=== PATIENT | male | born 1945 | race Caucasian/White ===

== ENCOUNTER 2017-02-15 12:14 | Day surgery (SDC) ==
[2017-02-15] MEDS ORDERED: VERSED ONE (12:45)
[2017-02-15] MEDS ORDERED: LIDOCAINE HCL 2% LUER-JET ONE (12:45)
[2017-02-15] MEDS ORDERED: DIPRIVAN 20 ML VIAL IVP ONE (12:45)
[2017-02-15 14:17] VITALS: BP 129/79; TEMP 98
--- NOTE | 2017-02-16 11:26 | OP ---
INDICATIONS FOR PROCEDURE: 71 year old gentleman presents for endoscopy. He has intermittent dysphasia. He is responded to massive dilation in the past. He has a family history of colon cancer involving his sister and mother. His last colonoscopy was in 2011 noting a hyperplastic polyp. MEDICATIONS: SEE ANESTHESIA NOTES. PROCEDURE: 1. ENDOSCOPY SOULEYMANE BIOPSY AND MACEDONIAN DILATATION, GASTRIC BIOPSY 2. COLONOSCOPY SNARE POLYPECTOMY REPORT: The risks, benefits, alternatives and limitations were discussed in detail with the patient. Informed consent was obtained. After adequate sedation was achieved, the video endoscope was introduced in the posterior pharynx and esophagus under direct vision and easily advanced down to the second portion of the duodenum. I then slowly withdrew. The duodenal mucosa appeared unremarkable as did the duodenal bulb. The antrum was unremarkable and the body was a little bit of inflammation on the top of the gastric folds in the proximal body. There was a small erosion. A biopsied this erosion for histological review and I also obtained biopsies from the antrum body for H. Pylori testing. The scope was retroflexed to look at the cardia and fundus which was unremarkable. The scope was anteflexed and withdrawn back through the esophagus which appeared normal. The GE junction was at the top of the gastric folds. I advanced the scope back down to the gastric lumen and I placed the guidewire withdrew the scope. Over the guidewire easily passed a 54 Latvian Spanish dilator with no resistance. The patient tolerated the procedure well with stable vital signs and pulse oximetry throughout. The patient's bed was turned and a digital rectal exam revealed good tone, no masses. The colonoscope was introduced into the rectum and advanced under direct visual guidance to the cecum. The cecum was identified by the appendiceal orifice and IC valve. I then slowly withdrew the scope in a circumferential manner and examined the mucosa quite carefully. I looked on the proximal and distal sides of folds and flexures as best as possible. I was able to retroflex the scope in the right colon and the left colon to increase visualization. In the descending area there was a small 5mm slightly raise polyp that I removed by snare technique. At the very distal sigmoid there was a 4-5mm slightly raised polyp that I removed by snare technique. No other abnormalities noted other than diverticulosis. This was scattered throughout the sigmoid. The scope was retroflexed to look at the anal canal which was unremarkable. The prep was good. The withdraw time was 11 minutes and 30 seconds. The patient tolerated the procedure well with stable vital signs and pulse oximetry throughout. IMPRESSION: 1. Minimal erosive gastritis 2. Successful passive dilation of the esophagus 3. Two colonic polyps were removed 4. Sigmoid diverticulosis RECOMMENDATIONS: 1. Strict reflux precautions 2. Await H.Pylori result 3. Wait gastric biopsy results 4. Limit NSAID use 5. Await colon polyp results 6. Consider repeat colonoscopy examination for surveillance in three years or sooner if there are signs and symptoms that indicate otherwise. 7. Office visit as needed CC: Dr. Cruz OLIVAREZ
== END 2017-02-15 14:15 | disposition home or self-care (01) ==
LOC: SURG 12:14
PROVIDERS: ATTEND Internal Medicine Gastroenterology
DX: Z09 Encounter for follow-up examination after completed treatment for conditions other than malignant neoplasm (principal); Z86.010 Personal history of colon polyps; D12.2 Benign neoplasm of ascending colon; D12.5 Benign neoplasm of sigmoid colon; D13.1 Benign neoplasm of stomach; K29.00 Acute gastritis without bleeding; K25.9 Gastric ulcer, unspecified as acute or chronic, without hemorrhage or perforation; Z80.0 Family history of malignant neoplasm of digestive organs
CPT/HCPCS: 87339

== ENCOUNTER 2017-10-11 09:04 | Day surgery (SDC) ==
[2017-10-11] MEDS ORDERED: LIDOCAINE 1% 20 ML MDV ID STA (10:24)
[2017-10-11] MEDS ORDERED: DIPRIVAN 20 ML VIAL IVP ONE (10:56)
[2017-10-11] MEDS ORDERED: LIDOCAINE HCL 2% LUER-JET ONE (10:56)
[2017-10-11] MEDS ORDERED: VERSED ONE (10:56)
[2017-10-11 12:29] VITALS: BP 150/82; TEMP 97.2
--- NOTE | 2017-10-12 10:42 | OP ---
INDICATIONS FOR PROCEDURE: 72-year-old gentleman presents for endoscopy. He has intermittent dysphagia mostly to medications. He underwent dilatation about nine months ago and he had improvement for a few months he states. He started having trouble again. MEDICATIONS: SEE ANESTHESIA NOTES. PROCEDURE: ENDOSCOPY, STATELESS DILATATION. REPORT: The risks, benefits, alternatives and limitations were discussed in detail with the patient. Informed consent was obtained. After adequate sedation was achieved, the video endoscope was introduced in the posterior pharynx and esophagus under direct vision and I easily advanced down to the second portion of the duodenum. I then slowly withdrew. The duodenal mucosa appeared unremarkable as did the duodenal bulb. The antrum and body were unremarkable. The scope was retroflexed to look at the cardia and fundus which was unremarkable. The scope was anteflexed and withdrawn back through the esophagus which was normal. I advanced the scope back down the gastric lumen. I placed a guidewire. Over the guidewire I easily advanced the 54 Cypriot [place] dilator. The patient tolerated the procedure well with stable vital signs and pulse oximetry throughout. IMPRESSION: 1. NORMAL ENDOSCOPY EXAM 2. SUCCESSFUL PASSIVE DILATATION OF THE ESOPHAGUS RECOMMENDATIONS: 1. I advised him to make sure he takes time to cut and chew his food well and eat slowly. He should drink plenty of liquids with medications and be in the full upright position. I did suggest that if he continues to have trouble despite diet, place his medications in applesauce, pudding or similar substance to help get down. 2. Will see him back in the office as needed. If he continues to have trouble despite the above measures, I have asked him to schedule an appointment. CC: DR. MANSI OLIVAREZ
== END 2017-10-11 12:05 | disposition home or self-care (01) ==
LOC: SURG 09:04
PROVIDERS: ATTEND Internal Medicine Gastroenterology
DX: R13.10 Dysphagia, unspecified (principal)